=== PATIENT | male | born 1965 | race Hispanic/Latino ===

== ENCOUNTER 2017-06-18 04:14 | Emergency (ER) | payer SELFPAY ==
[~2017-06-18] VITALS: Ht 165.1 cm; Wt 76.4 kg
[~2017-06-18 04:14] MED LIST: ALEVE220 MG PO; ZANTAC300 MG PO
[2017-06-18] MEDS ORDERED: PEN-VEE K,VEET500 MG PO (05:03)
[2017-06-18] MEDS ORDERED: ULTRAM50 MG PO (05:03)
[2017-06-18 05:11] VITALS: BP 148/103
== END 2017-06-18 05:12 | disposition home or self-care (01) ==
LOC: EME 04:14
DX: K08.89 Other specified disorders of teeth and supporting structures (principal)
CPT/HCPCS: 99281; 99283

== ENCOUNTER 2017-09-01 14:50 | Emergency (ER) | payer SELFPAY ==
[~2017-09-01] VITALS: Ht 170.2 cm; Wt 79.2 kg
[~2017-09-01 14:50] MED LIST changes: +PEN-VEE K,VEET500 MG PO; +ULTRAM50 MG PO
[2017-09-01 17:29] LABS: HEMATOCRIT 45.4 % (38.0-50.0); HEMOGLOBIN 15.5 G/DL (12.5-16.6); MCH 31.1 PG (29.0-34.0); MCHC 34.1 G/DL (30.0-36.0); PLATELET COUNT 235 K/uL (156-360); RBC DIS.WIDTH-CV 12.5 % (11.8-14.6); RBC DIS.WIDTH-SD 41.4 % (39-53); RED BLOOD COUNT 4.99 M/uL (4.00-5.50); WHITE BLOOD COUNT 6.9 K/uL (4.1-10.2)
[2017-09-01 17:42] LABS: CHLORIDE 108 mEq/L (99-109); SODIUM 140 mEq/L (136-147)
[2017-09-01 17:44] LABS: GLUCOSE 85 mg/dL (70-99)
[2017-09-01 17:48] LABS: CREATININE 0.9 mg/dL (0.6-1.3); GFR ESTIMATE (CALCULATED) > 59 mL/min/ (58.99-99999)
[2017-09-01 17:49] LABS: UREA NITROGEN (BUN) 10 mg/dL (9-23)
[2017-09-01 19:11] LABS: APPEARANCE CLEAR ((CLEAR)); BILIRUBIN NEGATIVE; BLOOD NEGATIVE; COLOR STRAW ((YELLOW)); GLUCOSE (STRIP) NEGATIVE; KETONES NEGATIVE; LEUKOCYTES NEGATIVE; NITRITE NEGATIVE; PROTEIN (STRIP) NEGATIVE; UCUL ADDED? NO; UROBILINOGEN 0.2 MG/DL (0.2-1.0)
[2017-09-01] MEDS ORDERED: VALIUM5 MG PO (20:04)
[2017-09-01 20:20] VITALS: BP 129/91
== END 2017-09-01 20:21 | disposition home or self-care (01) ==
LOC: EME 14:50
PROVIDERS: Physician Assistant Medical
DX: R42 Dizziness and giddiness (principal); K21.9 Gastro-esophageal reflux disease without esophagitis
CPT/HCPCS: 70450; 80048; 81003; 84484; 85027; 93005; 99281; 99285; J1885; J7030